=== PATIENT | male | born 1935 | race Caucasian/White ===

== ENCOUNTER → 2016-08-17 | Outpatient (CLI) | payer OTHER ==
[~2016-08-17] MED LIST: MNC50 PO
--- NOTE | 2016-08-17 16:00 | DIAGNOSTIC IMAGING REPORT ---
RIGHT SHOULDER MIN 2 VIEWS ROUTINE CLINICAL HISTORY: Right shoulder pain. COMPARISON: None FINDINGS: Alignment of the right shoulder is anatomic. There is no fracture or suspicious lesion. There is moderate AC joint arthrosis and mild glenohumeral joint arthrosis. IMPRESSION: 1. No acute fracture. 2. Moderate osteoarthritis of the right acromioclavicular joint and mild osteoarthritis of the glenohumeral joint. Electronically signed by: Vamshi Moran M.D. 08/17/2016 3:59 PM Dictated Date/Time: 08/17/2016 3:55 PM
== END | disposition home or self-care (01) ==
LOC: C.RADPV 15:42
PROVIDERS: ATTEND Nurse Practitioner
DX: M19.011 Primary osteoarthritis, right shoulder (principal)

== ENCOUNTER → 2016-08-29 | Outpatient (CLI) | payer OTHER ==
[2016-08-29 13:20] LABS: ALT/SGPT 45 U/L (12-78); BLOOD UREA NITROGEN 14 mg/dl (7-18); BUN/CREATININE RATIO 12.5 (10-20); CARBON DIOXIDE 28 mmol/L (21-32); CHLORIDE 103 mmol/L (98-107); GLUCOSE 96 mg/dl (70-99); POTASSIUM 4.1 mmol/L (3.5-5.1); SODIUM 137 mmol/L (136-145)
[2016-08-29 13:22] LABS: ALB/GLOB RATIO 1.1 (0.9-2); ALKALINE PHOSPHATASE 81 U/L (45-117); AST/SGOT 23 U/L (15-37)
[2016-08-29 13:25] LABS: CHOLESTEROL/HDL RATIO 4.5
== END | disposition home or self-care (01) ==
LOC: C.LABPVFM 08:52
PROVIDERS: ATTEND Nurse Practitioner
DX: L71.9 Rosacea, unspecified (principal); R60.9 Edema, unspecified; E55.9 Vitamin D deficiency, unspecified; E78.1 Pure hyperglyceridemia

== ENCOUNTER 2022-10-29 11:31 | Inpatient (IN) ==
[2022-10-29] MEDS ORDERED: SODIUM CHLORIDE 0.9% 1,000 ML IV ONE ×2 (11:42→12:24)
[2022-10-29] MEDS ORDERED: ACETAMINOPHEN 500 MG TAB PO STA (11:42)
--- NOTE | 2022-10-29 11:57 | Emergency Department Note ---
History of Present Illness General Chief complaint: Weakness Time Seen by Provider: 10/29/22 11:34 History of Present Illness Maximum Pain Intensity: 6 86-year-old male presents emergency department via EMS reportedly 1 week history of weakness he was extremely weak 6 days ago and may have struck his head. Reportedly he is not on any blood thinners. Patient's is concerned that he has a urinary tract infection. He has a history of Parkinson's and he has been extremely tired weak and fatigued for the past few days. Patient denies any nausea vomiting abdominal pain shortness of breath. Patient states generalized weakness. There were no other mitigating or alleviating factors Home Medications Medication Instructions Recorded Confirmed Type lightwheight wheelchair with foot #1 ea 07/02/21 10/27/22 Rx rest cholecalciferol (vitamin D3) 50 50 mcg PO QAM 08/17/21 10/27/22 History mcg (2,000 unit) capsule mecobalamin (vitamin B12) 1,000 1,000 mcg sublingual QAM 08/17/21 10/27/22 History mcg disintegrating tablet,sublingual omega 5-xxu-amx-fish oil 1,000 mg 1 cap PO QAM 08/17/21 10/27/22 History (120 mg-180 mg) capsule (Fish Oil) thiamine HCl (vitamin B1) 100 mg 100 mg PO QAM 08/17/21 10/27/22 History tablet polyethylene glycol 3350 17 17 g PO QAM 01/18/22 10/27/22 History gram/dose oral powder (Miralax) hydrocortisone 1 ea topical UD PRN Itching 01/20/22 10/27/22 History potassium chloride 10 mEq 10 meq PO QAM 01/20/22 10/27/22 History tablet,extended release pantoprazole 40 mg tablet,delayed 40 mg PO DAILY #90 tabs 01/26/22 10/27/22 Rx release gabapentin 300 mg capsule 900 mg PO HS #270 caps 03/28/22 10/27/22 Rx chlorthalidone 25 mg tablet 25 mg PO QAM #90 tabs 06/29/22 10/27/22 Rx escitalopram oxalate 10 mg tablet 10 mg PO DAILY #14 tabs 09/19/22 10/27/22 Rx escitalopram oxalate 10 mg tablet 10 mg PO DAILY #90 tabs 09/19/22 10/27/22 Rx fluticasone propionate 50 1 spray intranasal DAILY #16 grams 09/19/22 10/27/22 Rx mcg/actuation nasal spray,suspension carbidopa 25 mg-levodopa 100 mg 2 tab PO TID 90 days #540 tabs 10/27/22 10/27/22 Rx tablet (Sinemet) carbidopa ER 25 mg-levodopa 100 mg 1 tab PO HS #90 tabs 10/27/22 10/27/22 Rx tablet,extended release Allergies Allergy/AdvReac Type Severity Reaction Status Date / Time No Known Drug Allergies AdvReac Unknown Verified 10/27/22 08:45 Past Med/Surg History Medical History Abnormal gait Dupuytren's contracture of left hand "some on the rt as well" GERD (gastroesophageal reflux disease) History of COVID-19 06/2021, home test, not hosp; fatigue, headache, congestion>resolved. 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 Family History Father Myocardial infarction Mother Myocardial infarction Denies family history of Ovarian cancer Prostate cancer Breast cancer Colorectal cancer Social History Smoking Status: Unknown if ever smoked Second Hand Exposure: No; Do You Dip or Chew Tobacco: No; Hx Alcohol Use: Yes Alcohol type: beer Alcohol Intake Frequency: 2-4 x/Month Hx Substance Use: No Preferred Language: Croatian Communication Ability: Effective Stewardess Supervisor Required: No Beliefs That Will Affect Care: None marital status: Current Living Situation: Spouse current occupational status: retired How many Children do You have: 2 Feels Safe at Home: Yes Childhood Exposure to Second-Hand Smoke: Yes Diet: regular caffeine: Yes Dental Care, Regularly: Yes Physical Activity Frequency: Does not Exercise Seatbelt Use: always Sunscreen Use: No Assistive Devices: Walker and Other Review of Systems A total of 10 systems reviewed and were otherwise negative Constitutional: + fever and + body aches Physical Exam Vital Signs Vital Signs - 24 hr 10/29/22 11:34 10/29/22 11:34 10/29/22 11:59 Temperature 38.2 C H Temperature Source Oral Pulse Rate 89 89 Pulse Rate from SpO2 Sensor Respiratory Rate 24 Respiratory Effort / Characteristics Non-Labored Spontaneous Respiratory Pattern Regular Blood Pressure 142/77 H Blood Pressure Mean 98 Pulse Oximetry 91 91 Oxygen Delivery Method Room Air Room Air Oxygen Flow Rate 0 Sepsis Recent Fever Within 48 Hours Yes Sepsis New/Unexplained Change in Mental Status N/A Sepsis Action Taken by Nursing Physician Notified 10/29/22 11:43 10/29/22 11:45 10/29/22 11:45 Temperature Temperature Source Pulse Rate 92 H 89 Pulse Rate from SpO2 Sensor 87 84 Respiratory Rate 28 H 23 Respiratory Effort / Characteristics Respiratory Pattern Blood Pressure 130/74 Blood Pressure Mean 98 Pulse Oximetry 91 93 Oxygen Delivery Method Oxygen Flow Rate Sepsis Recent Fever Within 48 Hours Sepsis New/Unexplained Change in Mental Status Sepsis Action Taken by Nursing 10/29/22 12:00 10/29/22 12:00 10/29/22 12:15 Temperature Temperature Source Pulse Rate 86 Pulse Rate from SpO2 Sensor Respiratory Rate 27 H Respiratory Effort / Characteristics Respiratory Pattern Blood Pressure 130/69 138/59 L Blood Pressure Mean 90 79 Pulse Oximetry Oxygen Delivery Method Oxygen Flow Rate Sepsis Recent Fever Within 48 Hours Sepsis New/Unexplained Change in Mental Status Sepsis Action Taken by Nursing 10/29/22 12:15 10/29/22 12:52 10/29/22 12:30 Temperature 37.4 C Temperature Source Oral Pulse Rate 79 Pulse Rate from SpO2 Sensor 79 Respiratory Rate 22 Respiratory Effort / Characteristics Respiratory Pattern Blood Pressure 145/67 H Blood Pressure Mean 94 Pulse Oximetry 93 Oxygen Delivery Method Room Air Oxygen Flow Rate Sepsis Recent Fever Within 48 Hours Sepsis New/Unexplained Change in Mental Status Sepsis Action Taken by Nursing 10/29/22 12:30 10/29/22 12:49 10/29/22 12:51 Temperature Temperature Source Pulse Rate 83 87 Pulse Rate from SpO2 Sensor 68 86 Respiratory Rate 25 H 18 Respiratory Effort / Characteristics Respiratory Pattern Blood Pressure 129/66 Blood Pressure Mean 91 Pulse Oximetry 93 90 Oxygen Delivery Method Oxygen Flow Rate Sepsis Recent Fever Within 48 Hours Sepsis New/Unexplained Change in Mental Status Sepsis Action Taken by Nursing 10/29/22 12:51 10/29/22 13:26 10/29/22 13:00 Temperature Temperature Source Pulse Rate 83 Pulse Rate from SpO2 Sensor 76 Respiratory Rate 24 Respiratory Effort / Characteristics Respiratory Pattern Blood Pressure 121/64 Blood Pressure Mean 72 Pulse Oximetry 93 96 Oxygen Delivery Method Room Air Room Air Oxygen Flow Rate Sepsis Recent Fever Within 48 Hours Sepsis New/Unexplained Change in Mental Status Sepsis Action Taken by Nursing 10/29/22 13:00 10/29/22 13:16 10/29/22 13:30 Temperature Temperature Source Pulse Rate 77 83 Pulse Rate from SpO2 Sensor 66 Respiratory Rate 25 H 12 Respiratory Effort / Characteristics Respiratory Pattern Blood Pressure 115/55 L Blood Pressure Mean 76 Pulse Oximetry 90 Oxygen Delivery Method Oxygen Flow Rate Sepsis Recent Fever Within 48 Hours Sepsis New/Unexplained Change in Mental Status Sepsis Action Taken by Nursing 10/29/22 13:30 Temperature Temperature Source Pulse Rate 84 Pulse Rate from SpO2 Sensor 80 Respiratory Rate 22 Respiratory Effort / Characteristics Respiratory Pattern Blood Pressure Blood Pressure Mean Pulse Oximetry 94 Oxygen Delivery Method Room Air Oxygen Flow Rate Sepsis Recent Fever Within 48 Hours Sepsis New/Unexplained Change in Mental Status Sepsis Action Taken by Nursing GENERAL: Patient is awake alert in no acute distress patient is resting comfortably and showing no signs of anxiety EYES: The conjunctivae are clear. The pupils are round and reactive. HEAD: Abrasions to the left forehead EARS, NOSE, MOUTH AND THROAT: The nose is without any evidence of any deformity. Mucous membranes are moist. Tongue is midline. NECK: The neck is nontender and supple. RESPIRATORY: Normal respiratory effort is noted there is no evidence of wheezing rhonchi or rales CARDIOVASCULAR: Regular rate and rhythm noted there no murmurs rubs or gallops normal S1 normal S2. GASTROINTESTINAL: The abdomen is soft. Abdomen is nontender. BACK: No midline tenderness or or step-off noted range of motion in flexion extension as well as rotation no signs of muscle spasm noted MUSCULOSKELETAL/EXTREMITIES: There is no evidence of gross deformity full range of motion is noted in the hips and shoulders. SKIN: There is no obvious evidence of any rash. There are no petechiae, pallor or cyanosis noted. NEUROLOGIC: Patient is awake alert and oriented x3 strength is symmetric Course Reevaluation(s) Reevaluation #1: Patient was started on IV fluids, given IV Rocephin, patient was not in septic shock at the time of admission Time: 13:49 Consultations Consultation #1: Case was discussed with the [facility] hospitalist for admission Time: 13:50 Administered Medications Discontinued Medications Acetaminophen (Acetaminophen 500 Mg Tab) 1,000 mg PO NOW STA Stop: 10/29/22 11:43 Last Admin: 10/29/22 11:58 Dose: 1,000 mg Documented By: DEEPALI Sodium Chloride (Nss) 1,000 mls @ 999 mls/hr IV .Q1H1M ONE Stop: 10/29/22 12:42 Last Infusion: 10/29/22 12:52 Dose: 0 mls/hr Documented By: Admin: 10/29/22 12:00 Dose: 999 mls/hr Documented By: DEEPALI Ceftriaxone Sodium (Rocephin) 2,000 mg in 70 mls @ 140 mls/hr IV NOW STA Stop: 10/29/22 12:53 Last Admin: 10/29/22 13:23 Dose: 140 mls/hr Documented By: DEEPALI Sodium Chloride (Nss) 1,000 mls @ 999 mls/hr IV .Q1H1M ONE Stop: 10/29/22 13:24 Last Admin: 10/29/22 12:52 Dose: 999 mls/hr Documented By: DEEPALI Medical Decision Making Medical Records Attestation: I reviewed the patient's medical records. Home Medications Current Medication List: was personally reviewed by me Laboratory Data Attestation: I reviewed the patient's lab results. CBC WBCs show a leukocytosis; patient has an elevated blood glucose, a urinalysis that is positive for urinary tract infection 10/29/22 11:55 10/29/22 11:55 Lab Results 10/29/22 10/29/22 10/29/22 Range/Units 11:55 11:55 11:55 WBC 15.01 H (4.8-10.8) K/ul RBC 5.42 (4.70-6.10) M/uL Hgb 15.9 (14.0-18.0) g/dl Hct 45.4 (42.0-52.0) % MCV 83.8 (80.0-100.0) fL MCH 29.3 (25.0-34.0) pg MCHC 35.0 (32.0-36.0) g/dL RDW Std Deviation 42.0 (36.4-46.3) fL RDW Coeff of Isaias 13.8 (11.5-14.5) % Plt Count 203 (130-400) K/uL MPV 9.2 L (9.4-12.4) fL Immature Gran % (Auto) 0.5 % Neut % (Auto) 87.4 % Lymph % (Auto) 3.4 % Wells % (Auto) 8.3 % Eos % (Auto) 0.1 % Baso % (Auto) 0.3 % Neut # (Auto) 13.13 H (1.40-6.50) K/uL Lymph # (Auto) 0.51 L (1.20-3.40) K/uL [place] # (Auto) 1.24 H (0.11-0.59) K/uL Eos # (Auto) 0.01 (0.00-0.50) K/uL Baso # (Auto) 0.05 (0.00-0.20) K/uL Immature Gran # (Auto) 0.07 (0.01-0.20) K/uL Sodium 134 L (136-145) mmol/L Potassium 3.3 L (3.5-5.1) mmol/L Chloride 94 L (98-107) mmol/L Carbon Dioxide 31 (21-32) mmol/L Anion Gap 9 (3-11) BUN 15 (6-23) mg/dl Creatinine 1.06 (0.6-1.4) mg/dl Est Cr Clr Drug Dosing 72.6 ml/min Est GFR ( Amer) 74.3 ml/min Est GFR (Non-Af Amer) 64.1 ml/min BUN/Creatinine Ratio 14.2 (10-20) Glucose 153 H (70-99(Fasting)) mg/dl Lactate 2.2 H* (0.4-2.0) mmol/L Calcium 9.6 (8.6-10.3) mg/dl Magnesium 1.5 L (1.7-2.4) mg/dl Total Bilirubin 1.8 H (0.2-1.0) mg/dl Direct Bilirubin 0.4 H (0-0.2) mg/dl AST 16 (13-39) U/L ALT 6 L (7-52) U/L Alkaline Phosphatase 51 (34-104) U/L Total Protein 7.6 (6.0-8.3) gm/dl Albumin 4.3 (3.4-5.0) gm/dl Procalcitonin (0-0.5) ng/ml Urine Color Urine Appearance (Clear) Urine pH (4.5-7.5) Ur Specific [place] (1.000-1.030) Urine Protein (Negative) Urine Glucose (UA) (Negative) Urine Ketones (Negative) Urine Blood (Negative) Urine Nitrite (Negative) Urine Bilirubin (Negative) Urine Urobilinogen (Negative) Ur Leukocyte Esterase (Negative) Urine WBC (Auto) (0-5) /hpf Urine RBC (Auto) (0-4) /hpf U Hyaline Cast (Auto) (0-5) /lpf U Epithel Cells (Auto) (0-5) /lpf Urine Bacteria (Auto) (Negative) SARS-CoV-2, RNA, NAAT (NEGATIVE) 10/29/22 10/29/22 10/29/22 Range/Units 11:55 11:55 11:58 WBC (4.8-10.8) K/ul RBC (4.70-6.10) M/uL Hgb (14.0-18.0) g/dl Hct (42.0-52.0) % MCV (80.0-100.0) fL MCH (25.0-34.0) pg MCHC (32.0-36.0) g/dL RDW Std Deviation (36.4-46.3) fL RDW Coeff of Isaias (11.5-14.5) % Plt Count (130-400) K/uL MPV (9.4-12.4) fL Immature Gran % (Auto) % Neut % (Auto) % Lymph % (Auto) % Wells % (Auto) % Eos % (Auto) % Baso % (Auto) % Neut # (Auto) (1.40-6.50) K/uL Lymph # (Auto) (1.20-3.40) K/uL Wells # (Auto) (0.11-0.59) K/uL Eos # (Auto) (0.00-0.50) K/uL Baso # (Auto) (0.00-0.20) K/uL Immature Gran # (Auto) (0.01-0.20) K/uL Sodium (136-145) mmol/L Potassium (3.5-5.1) mmol/L Chloride (98-107) mmol/L Carbon Dioxide (21-32) mmol/L Anion Gap (3-11) BUN (6-23) mg/dl Creatinine (0.6-1.4) mg/dl Est Cr Clr Drug Dosing ml/min Est GFR ( Amer) ml/min Est GFR (Non-Af Amer) ml/min BUN/Creatinine Ratio (10-20) Glucose (70-99(Fasting)) mg/dl Lactate (0.4-2.0) mmol/L Calcium (8.6-10.3) mg/dl Magnesium (1.7-2.4) mg/dl Total Bilirubin (0.2-1.0) mg/dl Direct Bilirubin (0-0.2) mg/dl AST (13-39) U/L ALT (7-52) U/L Alkaline Phosphatase (34-104) U/L Total Protein (6.0-8.3) gm/dl Albumin (3.4-5.0) gm/dl Procalcitonin 0.14 (0-0.5) ng/ml Urine Color [place] Urine Appearance Turbid A (Clear) Urine pH 7.0 (4.5-7.5) Ur Specific [place] 1.016 (1.000-1.030) Urine Protein 2+ H (Negative) Urine Glucose (UA) Negative (Negative) Urine Ketones Negative (Negative) Urine Blood 3+ H (Negative) Urine Nitrite Negative (Negative) Urine Bilirubin Negative (Negative) Urine Urobilinogen Negative (Negative) Ur Leukocyte Esterase 3+ H (Negative) Urine WBC (Auto) >30 H (0-5) /hpf Urine RBC (Auto) >30 H (0-4) /hpf U Hyaline Cast (Auto) 5-10 H (0-5) /lpf U Epithel Cells (Auto) 0-5 (0-5) /lpf Urine Bacteria (Auto) 4+ H (Negative) SARS-CoV-2, RNA, NAAT (NEGATIVE) Imaging Data Attestation: I personally reviewed and interpreted this imaging study as follows: My Impression: Chest x-ray interpreted by me negative for infiltrate Radiologist's Impression: Chest X-Ray 10/29/22 11:34 SINGLE VIEW CHEST CLINICAL HISTORY: Sepsis. FINDINGS: 2 AP, portable, upright chest radiographs are compared to study dated 10/29/2019. The heart is enlarged. There is mild pulmonary vascular congestion. There are low lung volumes with bibasilar scarring/atelectasis. No airspace consolidation or large pleural effusion is identified. No pneumothorax is seen. The skeletal structures are osteopenic. There are chronic/healed right-sided rib fractures. IMPRESSION: Cardiomegaly with mild pulmonary vascular congestion. ACT 112: Negative or not required by law. Electronically signed by: Marcos Peters M.D. 10/29/2022 12:[address] 10/29/22 11:40 CT SCAN OF THE BRAIN WITHOUT IV CONTRAST CLINICAL HISTORY: Head injury yesterday. COMPARISON STUDY: CT of the brain dated 06/25/2021. TECHNIQUE: Unenhanced axial CT scan of the brain is performed from the vertex to the skull base. A dose lowering technique was utilized adhering to the principles of ALARA. CT DOSE: 2299.85 mGy.cm FINDINGS: Brain parenchyma: There is age-related involutional change noting moderate to advanced subcortical and periventricular microangiopathic disease. There is no hemorrhage, mass effect, or evidence of acute territorial ischemia by CT crite johanne. Combs-white matter differentiation is preserved. No extra-axial fluid collection is seen. Ventricles, sulci, cisterns: Prominent secondary to involutional change. Intracranial vasculature: There is atherosclerotic calcification of the cavernous carotid and vertebral arteries. Calvarium: The skeletal structures are osteopenic. No depressed calvarial fracture is seen. Sinuses and mastoids: The paranasal sinuses are clear. The mastoid air cells are well pneumatized. Orbits: The bony orbits are grossly intact. There are bilateral ocular lens implants. IMPRESSION: There is no hemorrhage, mass effect, or evidence of acute te rritorial ischemia by CT criteria. ACT 112: Negative or not required by law. Electronically signed by: Marcos Peters M.D. 10/29/2022 1:24 PM ECG Data Attestation: I personally reviewed and interpreted this ECG as follows: Additional Comments: EKG interpreted by me normal sinus rhythm occasional PAC, first-degree AV block, right bundle branch block, poor R wave progression the precordium no obvious ST segment elevation or depression, rate is 88 Telemetry was ordered by me, interpreted as normal sinus rhythm rate of 88 MDM Narrative Medical decision making differential diagnosis includes sepsis, urinary tract infection, pneumonia, COVID, head injury, electrolyte abnormality Patient had sepsis protocol initiated, was given IV fluids was given Tylenol was given antibiotics External medical records were reviewed by me History was provided to me by family at bedside Patient was started on sepsis protocol, is not in septic shock at the time of admission at 1350 Impression & Plan Acute UTI (urinary tract infection), Sepsis, Contusion of head Discharge Plan Visit Data Chief Complaint: Weakness ED Provider: Darryl Perry Discharge Problem: Acute UTI (urinary tract infection), Sepsis, Contusion of head Patient Disposition: Admitted As Inpatient Forms Stand Alone Forms: [facility] Prescriptions Prescriptions: No Action (DME) lightwheight wheelchair with foot rest See Rx Instructions .Route .MEDSUPPLY Qty: 1 0RF Rx Instructions: As directed polyethylene glycol 3350 [Miralax] 17 gram/dose powder 17 g PO QAM pantoprazole 40 mg tablet,delayed release (DR/EC) 40 mg PO DAILY Qty: 90 3RF Rx Instructions: 30 minutes prior to each meal gabapentin 300 mg capsule 900 mg PO HS Qty: 270 3RF Rx Instructions: 300 mg PO 3 at bedtime; chlorthalidone 25 mg tablet 25 mg PO QAM Qty: 90 3RF thiamine HCl (vitamin B1) 100 mg tablet 100 mg PO QAM mecobalamin (vitamin B12) 1,000 mcg tablet,disintegrating 1,000 mcg sublingual QAM Rx Instructions: place tablet under tongue and allow to dissolve for at least30 secs before swallowing omega 9-oju-bjv-fish oil [Fish Oil] 1,000 mg (120 mg-180 mg) capsule 1 cap PO QAM cholecalciferol (vitamin D3) 50 mcg (2,000 unit) capsule 50 mcg PO QAM escitalopram oxalate 10 mg tablet 10 mg PO DAILY Qty: 90 3RF escitalopram oxalate 10 mg tablet 10 mg PO DAILY Qty: 14 2RF Rx Instructions: just 2 weeks till mail order comes fluticasone propionate 50 mcg/actuation spray,suspension 1 spray intranasal DAILY Qty: 16 2RF Rx Instructions: administer into each nostril daily carbidopa-levodopa 25-100 mg tablet extended release 1 tab PO HS Qty: 90 3RF carbidopa-levodopa [Sinemet] 25-100 mg tablet 2 tab PO TID 90 Days Qty: 540 3RF hydrocortisone 1 ea topical UD PRN (Reason: Itching) Patient Comments: roller potassium chloride 10 mEq tablet extended release 10 meq PO QAM Referrals Referrals: Landy Chaudhary CRNP [Primary Care Provider] -
[2022-10-29 12:17] LABS: Basophils # (auto) 0.05 K/uL (0.00-0.20); Basophils % (auto) 0.3 %; Eosinophils # (auto) 0.01 K/uL (0.00-0.50); Eosinophils % (auto) 0.1 %; Hematocrit (blood only) 45.4 % (42.0-52.0); Hemoglobin 15.9 g/dl (14.0-18.0); Immature Granulocytes # (auto) 0.07 K/uL (0.01-0.20); Immature Granulocytes % (auto) 0.5 %; Lymphocytes # (auto) 0.51 K/uL (1.20-3.40); Lymphocytes % (auto) 3.4 %; Mean Corpuscular Hemoglobin 29.3 pg (25.0-34.0); Mean Corpuscular Volume 83.8 fL (80.0-100.0); Mean Platelet Volume 9.2 fL (9.4-12.4); Monocytes # (auto) 1.24 K/uL (0.11-0.59); Monocytes % (auto) 8.3 %; Neutrophils # (auto) 13.13 K/uL (1.40-6.50); Neutrophils % (auto) 87.4 %; Platelet Count 203 K/uL (130-400); RDW Coefficient of Variation 13.8 % (11.5-14.5); Red Blood Count 5.42 M/uL (4.70-6.10); White Blood Count 15.01 K/ul (4.8-10.8)
[2022-10-29] MEDS ORDERED: cefTRIAXone SODIUM 2,000 MG/70 ML BAG IV STA (12:24)
--- NOTE | 2022-10-29 12:29 | XRay Report ---
SINGLE VIEW CHEST CLINICAL HISTORY: Sepsis. FINDINGS: 2 AP, portable, upright chest radiographs are compared to study dated 10/29/2019. The heart i s enlarged. There is mild pulmonary vascular congestion. There are low lung volumes with bibasilar sc arring/atelectasis. No airspace consolidation or large pleural effusion is identified. No pneumothora x is seen. The skeletal structures are osteopenic. There are chronic/healed right-sided rib fractures . IMPRESSION: Cardiomegaly with mild pulmonary vascular congestion. ACT 112: Negative or not required by law. Electronically signed by: Marcos Peters M.D. 10/29/2022 12:27 PM
[2022-10-29 12:32] LABS: Albumin Level 4.3 gm/dl (3.4-5.0); BUN Creatinine Ratio 14.2 (10-20); Bilirubin Direct 0.4 mg/dl (0-0.2); Bilirubin,Total 1.8 mg/dl (0.2-1.0); Calcium 9.6 mg/dl (8.6-10.3); Creatinine Clr Calc Pharmacy 72.6 ml/min; Est GFR (African American) 74.3 ml/min; Est GFR (Non-African American) 64.1 ml/min; Magnesium 1.5 mg/dl (1.7-2.4); Potassium 3.3 mmol/L (3.5-5.1); Total Protein 7.6 gm/dl (6.0-8.3)
[2022-10-29 12:39] LABS: Appearance Urine Turbid (Clear); Bacteria Urine Automated 4+ (Negative); Bilirubin Urine Negative (Negative); Blood Urine 3+ (Negative); Color Urine Orange; Epithelial Cell Urine Auto 0-5 /lpf (0-5); Glucose Urine UA Negative (Negative); Ketones Urine Negative (Negative); Leukocyte Esterase Urine 3+ (Negative); Nitrite Urine Negative (Negative); Protein Urine 2+ (Negative); RBC Urine Automated >30 /hpf (0-4); Specific Gravity Urine 1.016 (1.000-1.030); Urobilinogen Urine Negative (Negative); WBC Urine Automated >30 /hpf (0-5)
--- NOTE | 2022-10-29 13:25 | CT Scan Report ---
CT SCAN OF THE BRAIN WITHOUT IV CONTRAST CLINICAL HISTORY: Head injury yesterday. COMPARISON STUDY: CT of the brain dated 06/25/2021. TECHNIQUE: Unenhanced axial CT scan of the brain is performed from the vertex to the skull base. A do se lowering technique was utilized adhering to the principles of ALARA. CT DOSE: 2299.85 mGy.cm FINDINGS: Brain parenchyma: There is age-related involutional change noting moderate to advanced subcortical an d periventricular microangiopathic disease. There is no hemorrhage, mass effect, or evidence of acute territorial ischemia by CT criteria. Combs-white matter differentiation is preserved. No extra-axial fluid collection is seen. Ventricles, sulci, cisterns: Prominent secondary to involutional change. Intracranial vasculature: There is atherosclerotic calcification of the cavernous carotid and vertebr al arteries. Calvarium: The skeletal structures are osteopenic. No depressed calvarial fracture is seen. Sinuses and mastoids: The paranasal sinuses are clear. The mastoid air cells are well pneumatized. Orbits: The bony orbits are grossly intact. There are bilateral ocular lens implants. IMPRESSION: There is no hemorrhage, mass effect, or evidence of acute territorial ischemia by CT radha viramontes. ACT 112: Negative or not required by law. Electronically signed by: Marcos Peters M.D. 10/29/2022 1:24 PM
[2022-10-29] MEDS ORDERED: MAGNESIUM SULFATE / D5W 1 GM/100 ML BAG IV ONE (13:40)
--- NOTE | 2022-10-29 13:46 | History & Physical Report ---
Date of Service October 29, 2022 Assessment & Plan (1) Acute UTI (urinary tract infection): Plan: Clinically, patient exhibits increased urinary frequency, urinary retention, burning with urination, dark-colored urine that "smells funny", back pain, and nausea; he denies dysuria, hematuria. UA concerning for infection Follow up blood and urine cultures Ceftriaxone 2g IV pending culture results CT abdomen/pelvis showed prostate enlargement; work-up for prostatitis (PSA, ESR, CRP), defer prostate exam in acute setting but consider once improving to diagnosis prostatitis (2) Sepsis: Plan: UTI sepsis, consider prostatitis, add PSA/ESR/CRP Lactate trending down 2.2--> 1.4 with appropriate IV fluids resuscitation Follow up urine and blood cultures Continue ceftriaxone 2g IV daily (3) Falling: Plan: Patient uses a walker at baseline Fell on 10/24/2022; no LOC, struck head CT head negative on admission History of Parkinson's History of falling from tripping on things; this time was different, he reports his "right leg gave out" Given new onset of right-sided lower leg weakness x1 week, will obtain MRI brain to assess for stroke although his Parkinson's appears to be more right sided per neurology notes (4) Hypertension: Plan: Stop chlorthalidone in setting of low blood pressure and infection Given ongoing presyncope and Parkinson's I'm not 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, his leg edema appears more due to venous insufficiency (5) Parkinsons disease: Plan: Continue on Carbidopa/Levodopa 25/100mg 2 tabs three times daily (6) Hypomagnesemia: Plan: Mag on admission was 1.5, total 3g IV Mg sulfate given, repeat level in AM Plan VTE Prophylaxis - chemical deferred in setting of hematuria Diet - heart healthy Disposition - admit to med/tele Admission and Anticipated Discharge Date Admission Date: October 29, 2022 History of Present Illness Chief Complaint: Generalized weakness Primary Care Provider: JULISA Travis Paresh Kennedy is an 86-year-old male with Parkinson's who presents to the ER via EMS due to increased right-sided weakness, urinary incontinence, and fever that gradually worsened this week. Vitals stable admission. Patient reportedly fell and struck his head on (10/24/2022). No LOC. No blood thinners. He is SOB at baseline, and reports regular being lightheaded, but said that he fell because his right leg "gave out on him". On arrival, the patient had a temperature of 38.2 C, leukocytosis at 15 with neutrophil predominance, and lactate at 2.2. UA positive for bacteria. No sick contacts. Patient was given 1 dose of Rocephin 2g IV. On exam, patient is in no acute distress. Patient denies any history of stroke, SC, DM. He endorses headache, nausea, burning with urination, increased urinary frequency, increased urinary retention, and dark urine that stinks. He denies chest pain, SOB at rest, abdominal pain, or vomiting. Patient denied slurred speech, facial droop. Allergies Allergy/AdvReac Type Severity Reaction Status Date / Time No Known Drug Allergies AdvReac Unknown Verified 10/29/22 15:19 Home Medications Medication Instructions Recorded Confirmed Type lightwheight wheelchair with foot #1 ea 07/02/21 10/29/22 Rx rest cholecalciferol (vitamin D3) 50 50 mcg PO QAM 08/17/21 10/29/22 History mcg (2,000 unit) capsule mecobalamin (vitamin B12) 1,000 1,000 mcg sublingual QAM 08/17/21 10/29/22 History mcg disintegrating tablet,sublingual omega 3-ekn-tvr-fish oil 1,000 mg 1 cap PO QAM 08/17/21 10/29/22 History (120 mg-180 mg) capsule (Fish Oil) thiamine HCl (vitamin B1) 100 mg 100 mg PO QAM 08/17/21 10/29/22 History tablet polyethylene glycol 3350 17 17 g PO QAM 01/18/22 10/29/22 History gram/dose oral powder (Miralax) hydrocortisone 1 % topical cream 1 ea topical UD PRN Itching ##0 01/20/22 10/29/22 History potassium chloride 10 mEq 10 meq PO QAM 01/20/22 10/29/22 History tablet,extended release pantoprazole 40 mg tablet,delayed 40 mg PO DAILY #90 tabs 01/26/22 10/29/22 Rx release gabapentin 300 mg capsule 900 mg PO HS #270 caps 03/28/22 10/29/22 Rx chlorthalidone 25 mg tablet 25 mg PO QAM #90 tabs 06/29/22 10/29/22 Rx escitalopram oxalate 10 mg tablet 10 mg PO DAILY #14 tabs 09/19/22 10/29/22 Rx fluticasone propionate 50 1 spray intranasal DAILY #16 grams 09/19/22 10/29/22 Rx mcg/actuation nasal spray,suspension carbidopa 25 mg-levodopa 100 mg 2 tab PO TID 90 days #540 tabs 10/27/22 10/29/22 Rx tablet (Sinemet) Past Med/Surg History Medical History Abnormal gait Dupuytren's contracture of left hand "some on the rt as well" GERD (gastroesophageal reflux disease) History of COVID-19 06/2021, home test, not hosp; fatigue, headache, congestion>resolved. 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 Beliefs That Will Affect Care: None marital status: Current Living Situation: Spouse Current Living Situation Comment: at home current occupational status: retired How many Children do You have: 2 Feels Safe at Home: Yes Safety Concerns: Feels Safe At This Time Childhood Exposure to Second-Hand Smoke: Yes Diet: regular caffeine: Yes Dental Care, Regularly: Yes Physical Activity Frequency: Does not Exercise Seatbelt Use: always Sunscreen Use: No Assistive Devices: Cane, Glasses, Hearing Aid - Bilateral, Oxygen - Continuous and Walker Review of Systems Review of Systems: All systems reviewed & are unremarkable except as noted in HPI & below Physical Exam Constitutional: WD/WN, vitals as above Eyes: PERRL, conjunctivae normal, anicteric sclerae Respiratory: normal respiratory effort, lungs clear to auscultation Cardiovascular: Rate/Rhythm: regular rate and regular rhythm Heart Sounds: no murmur Vessels: no JVD Extremities: normal capillary refill and + pedal edema (1+ b/l pitting edema); no calf tenderness Gastrointestinal (Abdomen): normal bowel sounds, soft, nontender, no hepatosplenomegaly Musculoskeletal: no cyanosis or clubbing, extremities motor strength 5/5 Neurologic: moves all extremities and awake; + plantar reflexes not intact and not confused Speech / Cognition: normal speech Motor/Sensory: no tremor and no pronator drift Cranial Nerves: PERRL, EOM intact bilaterally, normal facial strength, able to rotate head bilaterally, able to elevate shoulders bilaterally, no nystagmus and symmetric palate elevation Psychiatric: A+Ox3, euthymic affect Genitourinary: no CVA tenderness Results & Data Results & Data Vital Signs (Past 12 Hours) Vital Signs Temp Pulse Resp BP Pulse Ox O2 Del Method O2 Flow Rate 10/29/22 13:30 84 22 94 Room Air 10/29/22 13:30 115/55 L 10/29/22 13:16 83 12 10/29/22 13:00 77 25 H 90 10/29/22 13:00 121/64 10/29/22 13:26 96 Room Air 10/29/22 12:51 83 24 93 Room Air 10/29/22 12:51 129/66 10/29/22 12:49 87 18 90 10/29/22 12:30 83 25 H 93 10/29/22 12:30 145/67 H 10/29/22 12:52 37.4 C 10/29/22 12:15 79 22 93 Room Air 10/29/22 12:15 138/59 L 10/29/22 12:00 86 27 H 10/29/22 12:00 130/69 10/29/22 11:45 89 23 93 10/29/22 11:45 130/74 10/29/22 11:43 92 H 28 H 91 10/29/22 11:59 89 10/29/22 11:34 91 Room Air 0 10/29/22 11:34 38.2 C H 89 24 142/77 H 91 Room Air Laboratory Results Abnormal lab results 10/29/22 10/29/22 10/29/22 Range/Units 11:55 11:55 11:55 WBC 15.01 H (4.8-10.8) K/ul MPV 9.2 L (9.4-12.4) fL Neut # (Auto) 13.13 H (1.40-6.50) K/uL Lymph # (Auto) 0.51 L (1.20-3.40) K/uL Talbot # (Auto) 1.24 H (0.11-0.59) K/uL Sodium 134 L (136-145) mmol/L Potassium 3.3 L (3.5-5.1) mmol/L Chloride 94 L (98-107) mmol/L Glucose 153 H (70-99(Fasting)) mg/dl Lactate 2.2 H* (0.4-2.0) mmol/L Magnesium 1.5 L (1.7-2.4) mg/dl Total Bilirubin 1.8 H (0.2-1.0) mg/dl Direct Bilirubin 0.4 H (0-0.2) mg/dl ALT 6 L (7-52) U/L Urine Appearance (Clear) Urine Protein (Negative) Urine Blood (Negative) Ur Leukocyte Esterase (Negative) Urine WBC (Auto) (0-5) /hpf Urine RBC (Auto) (0-4) /hpf U Hyaline Cast (Auto) (0-5) /lpf Urine Bacteria (Auto) (Negative) 10/29/22 Range/Units 11:55 WBC (4.8-10.8) K/ul MPV (9.4-12.4) fL Neut # (Auto) (1.40-6.50) K/uL Lymph # (Auto) (1.20-3.40) K/uL Talbot # (Auto) (0.11-0.59) K/uL Sodium (136-145) mmol/L Potassium (3.5-5.1) mmol/L Chloride (98-107) mmol/L Glucose (70-99(Fasting)) mg/dl Lactate (0.4-2.0) mmol/L Magnesium (1.7-2.4) mg/dl Total Bilirubin (0.2-1.0) mg/dl Direct Bilirubin (0-0.2) mg/dl ALT (7-52) U/L Urine Appearance Turbid A (Clear) Urine Protein 2+ H (Negative) Urine Blood 3+ H (Negative) Ur Leukocyte Esterase 3+ H (Negative) Urine WBC (Auto) >30 H (0-5) /hpf Urine RBC (Auto) >30 H (0-4) /hpf U Hyaline Cast (Auto) 5-10 H (0-5) /lpf Urine Bacteria (Auto) 4+ H (Negative) Diagnostic Findings CT SCAN OF THE BRAIN WITHOUT IV CONTRAST CLINICAL HISTORY: Head injury yesterday. COMPARISON STUDY: CT of the brain dated 06/25/2021. TECHNIQUE: Unenhanced axial CT scan of the brain is performed from the vertex to the skull base. A dose lowering technique was utilized adhering to the principles of ALARA. CT DOSE: 2299.85 mGy.cm FINDINGS: Brain parenchyma: There is age-related involutional change noting moderate to advanced subcortical and periventricular microangiopathic disease. There is no hemorrhage, mass effect, or evidence of acute territorial ischemia by CT criteria. Combs-white matter differentiation is preserved. No extra-axial fluid collection is seen. Ventricles, sulci, cisterns: Prominent secondary to involutional change. Intracranial vasculature: There is atherosclerotic calcification of the cavernous carotid and vertebral arteries. Calvarium: The skeletal structures are osteopenic. No depressed calvarial fracture is seen. Sinuses and mastoids: The paranasal sinuses are clear. The mastoid air cells are well pneumatized. Orbits: The bony orbits are grossly intact. There are bilateral ocular lens implants. IMPRESSION: There is no hemorrhage, mass effect, or evidence of acute territorial ischemia by CT criteria. SINGLE VIEW CHEST CLINICAL HISTORY: Sepsis. FINDINGS: 2 AP, portable, upright chest radiographs are compared to study dated 10/29/2019. The heart is enlarged. There is mild pulmonary vascular congestion. There are low lung volumes with bibasilar scarring/atelectasis. No airspace consolidation or large pleural effusion is identified. No pneumothorax is seen. The skeletal structures are osteopenic. There are chronic/healed right-sided rib fractures. IMPRESSION: Cardiomegaly with mild pulmonary vascular congestion. Medications Administered ER Medications Given: Acetaminophen 1000mg PO Normal saline 1L bolus Ceftriaxone 2000mg IV Normal saline 1L bolus ECG Rate (beats per minute): 88 Rhythm: normal sinus Findings: + other (aberrant conduction), + PAC and + RBBB Comparison ECG Date: from (November 27, 2015) Change: the following changes noted (RBBB, aberrant conduction is now present) Code Status & VTE Plan Code Status Full VTE Prophylaxis Plan VTE Prophylaxis will be ordered: No PG Care Time/CCT Total # of Minutes Spent Total Time Spent with Patient: Total time spent is greater than 50% in coordination of care (as documented) at patient's floor/unit and/or counseling patient: Coding Level of Care Code 24532 INT INP/OBS CARE 3/75MIN Diagnoses Acute UTI (urinary tract infection) N39.0 Sepsis A41.9 Falling R29.6 Hypertension I10 Parkinsons disease G20 Hypomagnesemia E83.42
[2022-10-29] MEDS ORDERED: POTASSIUM CHLORIDE CRTAB 20 MEQ TABCR PO STA (13:57)
[2022-10-29 14:07] LABS: C Reactive Protein 3.71 mg/dl (0-0.5)
--- NOTE | 2022-10-29 14:19 | CT Scan Report ---
CT SCAN OF THE ABDOMEN AND PELVIS WITHOUT IV CONTRAST CLINICAL HISTORY: Dysuria. Back pain. COMPARISON STUDY: Abdominal CT dated 07/25/2018. TECHNIQUE: CT scan of the abdomen and pelvis is performed from the lung bases to the proximal femora. Images are reviewed in the axial, sagittal, and coronal planes. IV contrast was not administered for this examination. A dose lowering technique was utilized adhering to the principles of ALARA. The ex amination is moderately degraded by motion artifact. FINDINGS: Lung bases: The heart is mildly enlarged and without pericardial effusion. The coronary arteries are densely calcified. There is bibasilar scarring/atelectasis. No airspace consolidation or pleural effu justin is identified. A 3 mm left lower lobe pulmonary nodule image #34 is unchanged. Liver: The unenhanced liver is normal in size, contour, and attenuation. There is no intrahepatic latia iary ductal dilatation. Gallbladder: There are calcified gallstones without CT evidence of acute cholecystitis. Spleen: Normal in size and attenuation. Pancreas: The unenhanced pancreas is grossly unremarkable. Adrenal glands: Unremarkable. Kidneys: The unenhanced kidneys demonstrate cortical atrophy and are without hydronephrosis. No renal calculi are identified and no ureteral stone is seen. There is no evidence of contour deforming margi l mass lesion. Abdominal vasculature: There is moderate atherosclerotic calcification and mild ectasia of the abdomi nal aorta. Bowel: There is moderate colonic diverticulosis without CT evidence of acute diverticulitis. No bowel obstruction is identified. A 3 cm fat attenuation structure adjacent to the left colon on image #[id number] 5 likely presents a chronically torsed epiploic appendage1. The appendix is well-visualized and norm al. Peritoneum: There is no intraperitoneal free air or abdominal ascites. There is a small fat-containin g umbilical hernia. Lymphadenopathy: None. Pelvic viscera: The prostate gland is markedly enlarged and heterogeneous noting median lobe hypertro phy. The bladder is decompressed, and the wall is thickened/trabeculated indicating chronic outlet ob struction. There is mild pericystic infiltration. There are small bilateral fat-containing groin pool ias. Skeletal structures: The skeletal structures are osteopenic. There are bilateral pars defects at L5. Mild to moderate lumbosacral spondylosis is observed. No lytic or blastic lesions are seen. There are chronic/healed right-sided rib fractures. IMPRESSION: 1. Prostatomegaly with evidence of chronic bladder outlet obstruction. 2. There is nonspecific pericystic infiltration. Correlate with clinical findings and urinalysis for evidence of cystitis. 3. Colonic diverticulosis without CT evidence of acute diverticulitis. 4. Cardiomegaly. 5. Cholelithiasis. 6. Additional findings as above. ACT 112: Negative or not required by law. Electronically signed by: Marcos Peters M.D. 10/29/2022 2:17 PM
[2022-10-29] MEDS ORDERED: MoRPHine SULFATE 2 MG/ML CARP IV STA (15:30)
[2022-10-29] MEDS ORDERED: CARBIDOPA/LEVODOPA 25/100MG TAB PO STA (15:40)
[2022-10-29] MEDS ORDERED: POLYETHYLENE (MIRALAX) 17 GM PACK PO PRN (17:06)
[2022-10-29] MEDS ORDERED: ACETAMINOPHEN 325 MG TAB PO PRN (17:06)
[2022-10-29] MEDS: MAGNESIUM SULFATE / D5W 1 GM/100 ML BAG IV SCH ×2 (18:14→20:47)
[2022-10-29] MEDS: CARBIDOPA/LEVODOPA 25/100MG TAB PO SCH (20:46)
[2022-10-29] MEDS: GABAPENTIN 300 MG CAP PO SCH (20:47)
[2022-10-30] MEDS ORDERED: MELATONIN 3 MG TAB PO PRN (00:45)
[2022-10-30 06:37] LABS: Basophils # (auto) 0.05 K/uL (0.00-0.20); Basophils % (auto) 0.4 %; Eosinophils # (auto) 0.02 K/uL (0.00-0.50); Eosinophils % (auto) 0.1 %; Hematocrit (blood only) 43.2 % (42.0-52.0); Hemoglobin 14.5 g/dl (14.0-18.0); Immature Granulocytes # (auto) 0.32 K/uL (0.01-0.20); Immature Granulocytes % (auto) 2.3 %; Lymphocytes # (auto) 0.98 K/uL (1.20-3.40); Mean Corpuscular Hemoglobin 29.1 pg (25.0-34.0); Mean Corpuscular Hgb Conc 33.6 g/dL (32.0-36.0); Mean Corpuscular Volume 86.6 fL (80.0-100.0); Mean Platelet Volume 9.4 fL (9.4-12.4); Monocytes % (auto) 11.4 %; Neutrophils # (auto) 11.05 K/uL (1.40-6.50); Neutrophils % (auto) 78.8 %; Platelet Count 181 K/uL (130-400); RDW Coefficient of Variation 14.2 % (11.5-14.5); RDW Standard Deviation 44.4 fL (36.4-46.3); Red Blood Count 4.99 M/uL (4.70-6.10); White Blood Count 14.02 K/ul (4.8-10.8)
[2022-10-30 06:54] LABS: Albumin Globulin Ratio 1.3 (0.9-2); Albumin Level 3.8 gm/dl (3.4-5.0); BUN Creatinine Ratio 16.2 (10-20); Calcium 8.8 mg/dl (8.6-10.3); Creatinine Clr Calc Pharmacy 75.4 ml/min; Est GFR (African American) 75.2 ml/min; Est GFR (Non-African American) 64.9 ml/min; Potassium 3.2 mmol/L (3.5-5.1); Total Protein 6.8 gm/dl (6.0-8.3)
--- NOTE | 2022-10-30 09:12 | Electrocardiogram Report ---
Test Reason : Blood Pressure : / mmHG Vent. Rate : 088 BPM Atrial Rate : 088 BPM P-R Int : 206 ms QRS Dur : 132 ms QT Int : 412 ms P-R-T Axes : 000 252 -04 degrees QTc Int : 498 ms Sinus rhythm with Premature atrial complexes with Aberrant conduction Right bundle branch block Abnormal ECG When compared with ECG of 27-NOV-2015 11:50, Aberrant conduction is now Present Vent. rate has increased BY 31 BPM Right bundle branch block is now Present Confirmed by Saturnino Walters ([id number]) on 10/30/2022 9:11:32 AM Referred By: REFERRED SELF Confirmed By:Saturnino Walters
[2022-10-30] MEDS: POTASSIUM CHLORIDE 10 MEQ TABCR PO SCH (09:29)
[2022-10-30] MEDS: THIAMINE HCL 100 MG TAB PO SCH (09:29)
[2022-10-30] MEDS: POLYETHYLENE (MIRALAX) 17 GM PACK PO SCH ×2 (09:32→09:42)
[2022-10-30] MEDS: ESCITALOPRAM OXALATE 10 MG TAB PO SCH (09:32)
[2022-10-30] MEDS: PANTOprazole 40 MG TAB PO SCH (09:32)
[2022-10-30] MEDS: CHOLECALCIFEROL 1,000 UNITS 25 MCG TAB PO SCH (09:32)
[2022-10-30] MEDS: CARBIDOPA/LEVODOPA 25/100MG TAB PO SCH ×3 (09:33→19:49)
[2022-10-30] MEDS: FLUTICASONE PROPIONATE NA SPR 16 GM BTL NAE SCH (09:33)
--- NOTE | 2022-10-30 12:09 | Magnetic Resonance Report ---
Brain MRI WITHOUT CONTRAST HISTORY: right sided weakness, diplopia ?CVA TECHNIQUE: Multiplanar multisequence MRI of the brain was performed without the use of contrast. COMPARISON STUDY: Head CT 10/29/2022. Brain MRI 07/15/2021. FINDINGS: There is no mass, hematoma, midline shift, or acute infarct. The paranasal sinuses are koki r. The mastoid air cells are clear. The ventricles and sulci demonstrate mild to moderate age-related involutional changes. Scattered foci of T2 hyperintensity seen within the periventricular and subcor tical white matter are nonspecific but suggestive of moderate to severe microvascular ischemic change s. This remains unchanged. The major vascular flow voids at the skull base are well-maintained. Prior bilateral lens replacement. IMPRESSION: No significant change compared to the prior study. No acute intracranial abnormality. ACT 112: Negative or not required by law. Electronically signed by: Matt Almonte M.D. 10/30/2022 12:06 PM
--- NOTE | 2022-10-30 12:34 | Hospitalist Progress Note ---
Date of Service October 30, 2022 Assessment & Plan (1) Acute UTI (urinary tract infection): Plan: Clinically, patient presented with increased urinary frequency, urinary retention, burning with urination, dark-colored urine that "smells funny", back pain, and nausea; he denies dysuria, hematuria. UA concerning for infection Urine culture growing E. coli, awaiting sensitivities Blood cultures pending Ceftriaxone 2g IV pending culture results Clinically improving. Patient feeling better Leukocytosis improvin down to [address] abdomen/pelvis showed prostate enlargement; work-up for prostatitis: PSA 10.4, ESR 30, CRP 3.7 defer prostate exam in acute setting but consider once improving to diagnosis prostatitis (2) Sepsis: Plan: UTI sepsis, consider prostatitis Lactate trending down 2.2--> 1.4 with appropriate IV fluids resuscitation Continue ceftriaxone 2g IV daily Follow blood culture and urine culture sensitivities Improving (3) Falling: Plan: Patient uses a walker at baseline Fell on 10/24/2022; no LOC, struck head CT head negative on admission MRI head negative History of Parkinson's PT/OT consulted (4) Hypertension: Plan: Stop chlorthalidone in setting of low blood pressure and infection Given ongoing presyncope and Parkinson's 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 The urinary symptoms have resolved. His abdominal pain has resolved. He is feeling stronger. Review of Systems Review of Systems: All systems reviewed & are unremarkable except as noted in Subjective Physical Exam Physical Exam: General: Awake, conversant Heart: S1, S2/regular rate and rhythm, no murmur rubs or gallops Lungs: Clear to auscultation bilaterally. Normal effort Abdomen: Soft/nontender/nondistended. No hepatosplenomegaly Extremities: No clubbing/cyanosis. No edema Behavior: Appropriate, cooperative Results & Data Results & Data Vital Signs (Past 12 Hours) Vital Signs Temp Pulse Pulse Resp BP Pulse Ox O2 Del Method 09/10/23 07:25 36.9 C 63 20 149/82 H 92 Room Air 10/30/22 07:19 61 10/30/22 00:58 64 PG Care Time/CCT Total # of Minutes Spent Total Time Spent with Patient: Total time spent is greater than 50% in coordination of care (as documented) at patient's floor/unit and/or counseling patient: Coding Level of Care Code 62821 SUB INP/OBS CARE 2/35MIN Diagnoses Acute UTI (urinary tract infection) N39.0 Sepsis A41.9 Falling R29.6 Hypertension I10 Parkinsons disease G20 Hypomagnesemia E83.42
[2022-10-30] MEDS ORDERED: cefTRIAXone SODIUM 2,000 MG in DEXTROSE 5% 50 ML IV SCH (13:30)
[2022-10-30] MEDS: GABAPENTIN 300 MG CAP PO SCH (19:50)
[2022-10-30] MEDS ORDERED: TAMSULOSIN HCL 0.4 MG CAP PO SCH (21:00)
[2022-10-31] MEDS ORDERED: POTASSIUM CHLORIDE CRTAB 20 MEQ TABCR PO STA (00:20)
[2022-10-31] MEDS: CARBIDOPA/LEVODOPA 25/100MG TAB PO SCH (08:35)
[2022-10-31] MEDS: THIAMINE HCL 100 MG TAB PO SCH (08:35)
[2022-10-31] MEDS: CHOLECALCIFEROL 1,000 UNITS 25 MCG TAB PO SCH (08:35)
[2022-10-31] MEDS: POTASSIUM CHLORIDE 10 MEQ TABCR PO SCH (08:36)
[2022-10-31] MEDS: ESCITALOPRAM OXALATE 10 MG TAB PO SCH (08:36)
[2022-10-31] MEDS: POLYETHYLENE (MIRALAX) 17 GM PACK PO SCH (08:37)
[2022-10-31] MEDS: FLUTICASONE PROPIONATE NA SPR 16 GM BTL NAE SCH (08:38)
[2022-10-31] MEDS ORDERED: ENOXAPARIN INJ 40 MG/0.4 ML SYR SQ SCH (09:00)
[2022-10-31] MEDS: PANTOprazole 40 MG TAB PO SCH (10:47)
[2022-10-31 11:40] LABS: Basophils # (auto) 0.02 K/uL (0.00-0.20); Basophils % (auto) 0.2 %; Eosinophils # (auto) 0.02 K/uL (0.00-0.50); Eosinophils % (auto) 0.2 %; Hematocrit (blood only) 38.8 % (42.0-52.0); Hemoglobin 13.4 g/dl (14.0-18.0); Immature Granulocytes # (auto) 0.18 K/uL (0.01-0.20); Immature Granulocytes % (auto) 1.5 %; Lymphocytes # (auto) 0.66 K/uL (1.20-3.40); Lymphocytes % (auto) 5.6 %; Mean Corpuscular Hemoglobin 29.5 pg (25.0-34.0); Mean Corpuscular Hgb Conc 34.5 g/dL (32.0-36.0); Mean Corpuscular Volume 85.3 fL (80.0-100.0); Mean Platelet Volume 9.3 fL (9.4-12.4); Monocytes % (auto) 9.3 %; Neutrophils # (auto) 9.86 K/uL (1.40-6.50); Neutrophils % (auto) 83.2 %; Platelet Count 144 K/uL (130-400); RDW Coefficient of Variation 13.5 % (11.5-14.5); Red Blood Count 4.55 M/uL (4.70-6.10); White Blood Count 11.84 K/ul (4.8-10.8)
[2022-10-31 12:14] LABS: Albumin Globulin Ratio 1.1 (0.9-2); Albumin Level 3.4 gm/dl (3.4-5.0); BUN Creatinine Ratio 21.2 (10-20); Bilirubin,Total 1.2 mg/dl (0.2-1.0); Calcium 8.7 mg/dl (8.6-10.3); Creatinine Clr Calc Pharmacy 92.6 ml/min; Est GFR (African American) 92.7 ml/min; Globulin 3.2 gm/dl (2.5-4.0); Magnesium 1.8 mg/dl (1.7-2.4); Potassium 3.4 mmol/L (3.5-5.1); Total Protein 6.6 gm/dl (6.0-8.3); Troponin I High Sensitivity 12.5 pg/ml (0-20)
--- NOTE | 2022-10-31 15:29 | Discharge Summary ---
Discharge Summary Date of Service October 31, 2022 Notes For Next Care Provider Needs follow up on elevated PSA with repeat test in 1 month after treatment for UTI 30 day cardiac event monitor was ordered and will be sent to his home-this will need follow up Recommend sleep study Medication Changes From Visit cefdinir 300mg po bid x 8 more days tamsulosin 0.4mg po hs Decreased dose of chlorthalidone to 12.5mg po daily Admission HPI Per Admitting Provider Paresh Kennedy is an 86-year-old male with Parkinson's who presents to the ER via EMS due to increased right-sided weakness, urinary incontinence, and fever that gradually worsened this week. Vitals stable admission. Patient reportedly fell and struck his head on (10/24/2022). No LOC. No blood thinners. He is SOB at baseline, and reports regular being lightheaded, but said that he fell because his right leg "gave out on him". On arrival, the patient had a temperature of 38.2 C, leukocytosis at 15 with neutrophil predominance, and lactate at 2.2. UA positive for bacteria. No sick contacts. Patient was given 1 dose of Rocephin 2g IV. On exam, patient is in no acute distress. Patient denies any history of stroke, VT, DM. He endorses headache, nausea, burning with urination, increased urinary frequency, increased urinary retention, and dark urine that stinks. He denies chest pain, SOB at rest, abdominal pain, or vomiting. Patient denied slurred speech, facial droop. Principal Dx & Hospital Course #1 = Principal Diagnosis (1) Acute UTI (urinary tract infection): Clinically, patient presented with increased urinary frequency, urinary retention, burning with urination, dark-colored urine that "smells funny", back pain, and nausea; he denies dysuria, hematuria. UA concerning for infection Urine culture growing E. coli, pansensitive Blood cultures no growth to von eat 48 hr martha Ceftriaxone 2g IV given and will convert to cefdinir 300mg po bid x 8 more days Clinically improving. Patient feeling better, no further urinary symptoms, WBC count down to 11, afebrile CT abdomen/pelvis showed prostate enlargement, PSA elevated at 10 in setting of infection--> started tamsulosin and recommend repeating PSA in 1 month, possible f/u with Urology (2) Sepsis: UTI sepsis, consider prostatitis/UTI Lactate trended down 2.2--> 1.4 with appropriate IV fluid resuscitation treatment as above, now resolved (3) Falling: Patient uses a walker at baseline Fell on 10/24/2022; no LOC, struck head CT head negative on admission MRI head negative History of Parkinson's PT/OT consulted-recommended rehab but he refuses tele with 3-5 second sinuses pauses but only while sleeping-likely untreated sleep apnea---> recommend 30 day cardiac event monitor he did not have syncope pr presyncope with his fall last week ECG with aberrant conduction and PVCs, RBBB, troponin here negative (4) Hypertension: Stopped chlorthalidone in setting of low blood pressure and infection, hypokalemia replaced KCl recommend restarting at reduced dose of 12.5mg daily (5) Parkinsons disease: Continue on Carbidopa/Levodopa 25/100mg 2 tabs three times daily (6) Hypomagnesemia: Mag on admission was 1.5-likely from chlorthalidone replaced and resolved Plan Dispo-much improved, stable for dc to home with home health, declines rehab placement discussed care with at bedside Discharge Exam Constitutional WD/WN, vitals as above Respiratory normal respiratory effort, lungs clear to auscultation Cardiovascular Rate/Rhythm: regular rate and regular rhythm Heart Sounds: no murmur Extremities: + edema (trace leg) Gastrointestinal (Abdomen) normal bowel sounds, soft, nontender, no hepatosplenomegaly Psychiatric A+Ox3, euthymic affect Updated Medication List Medication Instructions Recorded Confirmed Type lightwheight wheelchair with foot #1 ea 07/02/21 10/29/22 Rx rest cholecalciferol (vitamin D3) 50 50 mcg PO QAM 08/17/21 10/29/22 History mcg (2,000 unit) capsule mecobalamin (vitamin B12) 1,000 1,000 mcg sublingual QAM 08/17/21 10/29/22 History mcg disintegrating tablet,sublingual omega 1-qbr-obz-fish oil 1,000 mg 1 cap PO QAM 08/17/21 10/29/22 History (120 mg-180 mg) capsule (Fish Oil) thiamine HCl (vitamin B1) 100 mg 100 mg PO QAM 08/17/21 10/29/22 History tablet polyethylene glycol 3350 17 17 g PO QAM 01/18/22 10/29/22 History gram/dose oral powder (Miralax) hydrocortisone 1 % topical cream 1 ea topical UD PRN Itching ##0 01/20/22 10/29/22 History potassium chloride 10 mEq 10 meq PO QAM 01/20/22 10/29/22 History tablet,extended release pantoprazole 40 mg tablet,delayed 40 mg PO DAILY #90 tabs 01/26/22 10/29/22 Rx release gabapentin 300 mg capsule 900 mg PO HS #270 caps 03/28/22 10/29/22 Rx chlorthalidone 25 mg tablet 25 mg PO QAM #90 tabs 06/29/22 10/29/22 Rx escitalopram oxalate 10 mg tablet 10 mg PO DAILY #14 tabs 09/19/22 10/29/22 Rx fluticasone propionate 50 1 spray intranasal DAILY #16 grams 09/19/22 10/29/22 Rx mcg/actuation nasal spray,suspension carbidopa 25 mg-levodopa 100 mg 2 tab PO TID 90 days #540 tabs 10/27/22 10/29/22 Rx tablet (Sinemet) cefdinir 300 mg capsule 300 mg PO BID #16 caps 10/31/22 Rx tamsulosin 0.4 mg capsule 0.4 mg PO HS #30 caps 10/31/22 Rx Hospital Stay Data Consultations 10/29/22 13:36 ED Decision to Admit Stat Diagnostic Imagining Performed 10/29/22 11:40 CT abd pelvis wo con Stat CT head/brain wo con Stat 10/30/22 09:00 MR brain wo con Routine Pending Results Patient Have Any Pending Studies at Discharge: Yes (Final blood cultures-no growth to date) Discharge Instructions Given to Patient (Per Discharging Provider) You were admitted for sepsis and a urinary tract infection. Please finish out 8 more days of the antibiotic. Your Prostate Specific Antigen (PSA) blood test was elevated and should have follow up with your PCP and/or a Urologist within the month. Your prostate is enlarged on the CT scan and you were started on a medication called tamsulosin to shrink the prostate. You also were found to have some pauses in your heart rhythm on the heart monitor only when sleeping. This could be from untreated/undiagnosed sleep apnea. A 30 day heart monitor will be sent to your house to further monitor this. Your potassium level was low and this is likely from your chlorthalidone pill. The dose of this was reduced to 12.5mg (1/2 tab) to help prevent this. You had a brain MRI that showed you did NOT have a stroke. Total Time Total Time Spent Total Time Spent (In Minutes): 35 min Coding Level of Care Code 24614 INP/OBS DISCH >30 MIN Diagnoses Acute UTI (urinary tract infection) N39.0 Sepsis A41.9 Falling R29.6 Hypertension I10 Parkinsons disease G20 Hypomagnesemia E83.42
--- NOTE | 2022-11-01 15:30 | Electrocardiogram Report ---
Test Reason : Blood Pressure : / mmHG Vent. Rate : 064 BPM Atrial Rate : 064 BPM P-R Int : 214 ms QRS Dur : 164 ms QT Int : 454 ms P-R-T Axes : -01 -70 -16 degrees QTc Int : 468 ms Sinus rhythm with 1st degree A-V block Left axis deviation Right bundle branch block Abnormal ECG When compared with ECG of 29-OCT-2022 11:47, Aberrant conduction is no longer Present Questionable change in QRS duration Confirmed by Saturnino Walters ([id number]) on 11/01/2022 3:30:21 PM Referred By: REFERRED SELF Confirmed By:Saturnino Walters
== END 2022-10-31 16:31 | disposition home health service (06) | DRG 872 ==
LOC: ED 11:31 → SUATTDRO 13:38 → 2N 13:38